=== PATIENT | female | born 1980 | race African-American/Black ===

== ENCOUNTER 2017-03-09 08:33 | Day surgery (SDC) | payer BC, OTHER ==
[2017-03-06 17:12] VITALS: BMI 19.5
[2017-03-09] MEDS ORDERED: PROPOFOL 20 ML ONE (13:02)
[2017-03-09] MEDS ORDERED: ceFAZolin SODIUM 1 GM VIAL ONE (13:02)
[2017-03-09] MEDS ORDERED: MIDAZOLAM HCL 2 MG/2 ML SINGLE DOSE VIAL ONE (13:02)
[2017-03-09] MEDS ORDERED: ONDANSETRON 4 MG/2 ML VIAL IVPUSH PRN (13:08)
[2017-03-09] MEDS ORDERED: ACETAMINOPHEN 500 MG TABLET (FP) PO PRN (13:08)
[2017-03-09] MEDS ORDERED: oxyCODONE HCL 5 MG TABLET PO PRN (13:08)
[2017-03-09] MEDS ORDERED: LIDOCAINE HCL 1%, 10 MG/ML (20ML VIAL) ONE (13:10)
[2017-03-09] MEDS ORDERED: LACTATED RINGERS SOLUTION 1,000 ML IV SCH (13:15)
[2017-03-09] MEDS ORDERED: ceFAZolin SODIUM 1 GM VIAL IVPB ONE (13:18)
[2017-03-09] MEDS ORDERED: LIDOCAINE HCL 1%, 10 MG/ML (20ML VIAL) INF ONE (13:28)
[2017-03-09 14:22] VITALS: TEMP 98.8
[2017-03-09 15:42] VITALS: BP 102/58; PULSE 78
--- NOTE | 2017-03-10 08:04 | OP ---
DATE OF OPERATION: 03/09/2017 PREOPERATIVE DIAGNOSIS: Left breast intraductal papilloma. POSTOPERATIVE DIAGNOSIS: Left breast intraductal papilloma. PROCEDURE: Left breast wire localized excision. SURGEON: Charley Julio MD ANESTHESIA: Local and IV sedation. ESTIMATED BLOOD LOSS: Minimal. COMPLICATIONS: None. This is a sterile procedure. INDICATIONS: The patient had a screening mammogram and ultrasound that noted a nodule in the retroareolar left breast. A needle biopsy showed an intraductal papilloma. My recommendation was an excision. The procedure was discussed with all of the questions answered. PROCEDURE IN DETAIL: The patient was brought to [facility] and taken to Breast Imaging where a wire was used to localize the clip in the retroareolar left breast. She was then brought up to the operating room. After IV sedation and IV antibiotics, the left breast was prepped and draped in the usual sterile fashion. The area in the retroareolar inner left breast was anesthetized with 1% lidocaine without epinephrine. A periareolar incision was made in the inner left breast, and a wire was used as a guide to get down to the area. This was excised en bloc and sent for a specimen radiograph. The specimen radiograph showed the clip and wire to be intact within the specimen. After hemostasis was assured, the parenchyma was approximated with interrupted 2-0 Vicryl. Skin was approximated with interrupted 3-0 Vicryl and running 4-0 Prolene. A sterile dressing with Tegaderm and 4 X 4s was applied. She tolerated the procedure well and was taken to recovery in good condition. Audi [id number]
--- NOTE | 2017-03-13 11:38 | PATH ---
Surgical Pathology Report Patient Name: HEATHER RING [facility]. Rec. #: [id number] /Age/Gender: 1980 (Age: 36) / F Account: [id number] Location: [facility] Taken: 03/09/2017 Received: 03/09/2017 Reported: 03/13/2017 Physicians: Charley Julio M.D. Specimen(s) Received LEFT BREAST EXCISION POST-NEEDLE LOCALIZATION Clinical History None given Final Diagnosis BREAST, LEFT, EXCISION: INTRADUCTAL PAPILLOMAS IN A BACKGROUND OF PROLIFERATIVE FIBROCYSTIC CHANGES INCLUDING STROMAL FIBROSIS, MICROCYSTS, APOCRINE METAPLASIA, USUAL DUCTAL HYPERPLASIA, PRIOR BIOPSY SITE CHANGES, AND FOCAL FAT NECROSIS. Electronically Signed Marisol Brink M.D. Gross Description Received fresh on an [employer]uGrid labeled "left breast excision," is a 6.0 x 3.2 x 1.4 cm irregular, unoriented portion of fibroadipose tissue with a needle localization wire present. There is no skin or nipple present. The specimen is inked blue and serially sectioned. Sectioning reveals abundant dense, white fibrous tissue. No definitive mass is identified. The specimen is entirely and sequentially submitted in 14 cassettes. Total formalin fixation time: 9 hours 03/09/201703/09/2017
== END 2017-03-09 15:45 | disposition home or self-care (01) ==
LOC: JASU-SURG 08:33
PROVIDERS: ATTEND Surgery
PROC: 0HBU0ZX Excision of Left Breast, Open Approach, Diagnostic (ICD-10-PCS; principal; 2017-03-09 12:00)
DX: D24.2 Benign neoplasm of left breast (principal)
CPT/HCPCS: 19281; 84703; 94760